=== PATIENT | male | born 2000 | race Caucasian/White ===

== ENCOUNTER 2024-01-26 12:53 | Emergency (ER) | payer OTHER, SELFPAY ==
[2024-01-26 13:15] VITALS: BP 150/97; PULSE 66; RESP 18; TEMP 36.1; O2SAT 100
--- NOTE | 2024-01-26 14:35 | ED.EXTPRO ---
HPI - Extremity Problem General Chief complaint: Extremity Problem,Nontraumatic Stated complaint: left knee pain Time Seen by Provider: 01/26/24 13:45 Source: patient Mode of arrival: ambulatory Limitations: no limitations History of Present Illness HPI Narrative: Patient is a 23-year-old male who presents the ED with report of left knee pain. Patient reports approx 1 week ago, he jumped down off a truck trailer and landed with his left knee bent. He states he felt a pop in his left knee. He has had pain in his left medial knee since then. Is able to ambulate, but has pain with this. Denies significant swelling. Has not tried anything for pain. Denies numbness. Denies any other injuries. Related Data Allergies Allergy/AdvReac Type Severity Reaction Status Date / Time No Known Allergies Allergy Unknown Verified 01/26/24 12:54 Review of Systems Review of Systems: CONSTITUTIONAL: Denies fever, chills, or sweats. MUSCULOSKELETAL: See HPI NEUROLOGIC: Denies headache, dizziness, numbness, or weakness. All systems reviewed & are unremarkable except as noted in HPI and below Exam Narrative: GENERAL: Well appearing, well-nourished, non-toxic, in no acute distress. HEAD: Normocephalic, atraumatic. RESPIRATORY: Airway patent, respirations nonlabored. CARDIOVASCULAR: Regular rate and rhythm MUSCULOSKELETAL: Moves all extremities. No gross deformities. No significant limited range of motion of left knee. TTP along medial joint space extending posteriorly. No palpable deformities. No significant swelling to anterior knee. No warmth or erythema. No lower extremity edema. No calf tenderness. Sensation intact. SKIN: Warm, dry, normal color. NEURO: A&O X3. Speech clear. Steady gait. PSYCHIATRIC: Appropriate mood and affect. Normal interaction. Course Vital Signs Vital signs: Vital Signs Temperature 97.0 F L 01/26/24 13:15 Pulse Rate 66 01/26/24 13:15 Respiratory Rate 18 01/26/24 13:15 Blood Pressure 150/97 H 01/26/24 13:15 Pulse Oximetry 100 01/26/24 13:15 Oxygen Delivery Room Air 01/26/24 13:15 Temperature 97.0 F L 01/26/24 13:15 Pulse Rate 66 01/26/24 13:15 Respiratory Rate 18 01/26/24 13:15 Blood Pressure 150/97 H 01/26/24 13:15 Pulse Oximetry 100 01/26/24 13:15 Oxygen Delivery Room Air 01/26/24 13:15 MDM - Extremity (Nontraumatic) MDM Narrative Medical decision making narrative: Patient?s injury is consistent with musculoskeletal etiology. No signs of neurologic or vascular compromise on physical examination. Compartments are soft without signs of compartment syndrome. XR w/o acute findings. No osseous abnormality or joint effusion noted. No other injuries. No evidence of DVT on exam. No evidence of septic joint. Discussed likelihood of ligamentous versus meniscal injury. Patient given Von wrap and crutches in the ED, advised to continue Tylenol, ibuprofen, rice treatment. Will refer to orthopedics for persistent pain. Discussed return precautions. Discharged in stable condition. Medical Records Attestation: I reviewed the patient's medical records. Imaging Data Attestation: I personally reviewed and interpreted this imaging study as follows: Radiologist's impression: ITS Impressions Knee X-Ray 01/26/24 14:10 Impression: Unremarkable left knee radiographs. Discharge Plan Discharge Clinical Impression: Internal derangement of left knee Patient Disposition: Home, Self-Care Condition: Stable Instructions: Antibiotic Form, Knee Sprain (ED) Additional Instructions: Take ibuprofen and Tylenol as needed for pain. Utilize VON bandage for compression/support. Recommend elevation of leg, ice as needed. Follow up with orthopedics if you continue to have pain over the next couple weeks. Return to the ED if you experience worsening or severe pain, recurrent injury, severe swelling, numbness, or any other symptoms of concern. Follow-
[2024-01-26] MEDS: IBUPROFEN 600 MG TABLET PO (14:46)
== END 2024-01-26 15:14 | disposition home or self-care (01) ==
LOC: ANHED 14:53
PROVIDERS: Emergency Provider Physician Assistant; PCP Pediatrics
DX: M23.92 Unspecified internal derangement of left knee (principal); S89.92XA Unspecified injury of left lower leg, initial encounter; X50.9XXA Other and unspecified overexertion or strenuous movements or postures, initial encounter
CPT/HCPCS: 73564; 99283; A9270

== ENCOUNTER 2024-11-30 15:18 | Emergency (ER) | payer OTHER, SELFPAY ==
--- NOTE | 2024-11-30 15:23 | ED.MALEGU ---
HPI - Male Genitourinary General Chief complaint: Urogenital-Male Stated complaint: STD check Time Seen by Provider: 11/30/24 15:28 Source: patient, RN notes reviewed and old records reviewed Mode of arrival: ambulatory Limitations: no limitations History of Present Illness HPI Narrative: 23-year-old male presents to the [facility] wanting to be checked for an STD. Patient concerned he had a possible exposure of chlamydia on 13 November. Patient denies any abdominal pain. No burning with urination. No penile discharge. No testicular pain or swelling. States that he just wants to be tested. Related Data Home Medications ?Medication ?Instructions ?Recorded ?Confirmed ?Last Taken ?Type No Home Medications 02/11/24 11/30/24 Unknown History Allergies Allergy/AdvReac Type Severity Reaction Status Date / Time No Known Allergies Allergy Unknown Verified 11/30/24 15:20 Review of Systems Review of Systems: All systems reviewed & are unremarkable except as noted in HPI and below Constitutional: Constitutional: Reports no additional constitutional complaints ENT: Reports system reviewed and no additional complaints, except as documented Cardiovascular: Cardiovascular: Reports no additional cardiovascular complaints, Denies chest pain and Denies dyspnea Respiratory: Respiratory: Reports no additional respiratory complaints, Denies chest congestion, Denies cough and Denies dyspnea Musculoskeletal: Musculoskeletal: Reports no additional musculoskeletal complaints Integumentary/Breasts: Skin/Breast: Reports system reviewed and no additional complaints, except as docu PMFSH Past Medical History Medical History No significant past medical history Surgical History Surgical History No significant past surgical history Family History Family History Grandparent Arthritis Mother Arthritis Social History Social History Smoking status: Unknown if ever smoked Alcohol intake: never Do You Feel Safe in your Home?: Yes Lack of Transportation: No Lack of Food: Sometimes True Current Housing: I Have Housing Concerned About Future Housing: No Difficulty Paying Gas/Electric Bills: No Difficulty Paying for Meds: No Currently Unemployed: No Education: High School Diploma/GED Difficulty w/ Childcare or Family Care: No Comments At the time of my signature, I reviewed and agree with the nursing past medical, surgical, social, and family history. There is no relevant family history pertinent to the patient complaint. Exam Const: General: cooperative, healthy appearing, comfortable, no acute distress, well developed, alert and well nourished Nutritional Appearance: well nourished Orientation/consciousness: patient oriented x3 Limitations: no limitations HENMT: Head: normal to inspection Eyes: General: appearance normal, both eyes and all related structures Alignment and Position: alignment normal Neck: Neck: normal visual inspection, full ROM, no lymphadenopathy and no meningeal signs Chest: Chest palpation & inspection: normal inspection of the chest Resp: Effort & Inspection: normal respiratory effort and able to speak in complete sentences Cardio: Rate: regular rate Skin: General skin exam: normal color and no rashes or lesions noted Neuro: General: patient oriented x3, gait normal, moves all extremities and no meningeal signs Cognition (Neuro): normal cognition Speech: normal speech Gait exam (Neuro): Normal gait present Extrem: General: normal to inspection, full ROM, capillary refill normal and normal gait Psych: Appearance: grossly normal and well kempt Mental Status: mental status grossly normal Speech and movement: Normal speech and movement present and Clear speech present Affect: normal affect Attitude: cooperative Course Course Level of Care: Express Care Visit Vital Signs Vital signs: Vital Signs Temperature 98.3 F 11/30/24 15:24 Pulse Rate 88 11/30/24 15:24 Respiratory Rate 16 11/30/24 15:24 Blood Pressure 153/84 H 11/30/24 15:24 Pulse Oximetry 98 11/30/24 15:24 Oxygen Delivery Room Air 11/30/24 15:24 Temperature 98.3 F 11/30/24 15:24 Pulse Rate 88 11/30/24 15:24 Respiratory Rate 16 11/30/24 15:24 Blood Pressure 153/84 H 11/30/24 15:24 Pulse Oximetry 98 11/30/24 15:24 Oxygen Delivery Room Air 11/30/24 15:24 Reviewed MDM - Male Genitourinary MDM Narrative Medical decision making narrative: Patient sitting comfortably in exam room. Nontoxic, vitals stable. Patient is in no acute distress. Patient presents requesting STI testing specifically chlamydia Patient reports possible exposure on 13 November, no signs or symptoms currently Will collect urine sent for testing. Patient will wait till test comes back Patient appropriate for outpatient treatment and follow-up STI clinic referral list given Discharge instructions reviewed with patient, as well as provided in writing per nursing staff. The instructions also include specific and strict return/GO TO THE ER as well as f/u information. All questions have been answered, and the patient deny any further questions with discharge and discharge plan. Some parts of this dictation were generated by voice recognition software and may contain typographical and/or grammatical inaccuracies. Differential Diagnosis Differential diagnosis: Likely other (STI) Critical Care Time Critical Care Time Critical Care Time: No Discharge Plan Discharge Clinical Impression: Concern about STI in male without diagnosis Patient Disposition: Home, Self-Care Condition: Stable Instructions: Antibiotic Form, Chlamydia (ED), Sexually Transmitted Diseases (ED), Safe Sex Practices (ED) Additional Instructions: You have been tested for chlamydia, gonorrhea and Trichomonas. They have been sent to the lab can take up to 72 hours to return. You will be notified with the results. If they are positive we will then call in a prescription. If anything is positive we do recommend a minimum of 2 weeks of no sexual activity Also if anything is positive we do recommend further evaluation and additional testing. Handout has been given to you on STI clinics in the area. Follow-up with primary care provider Patient Language: [place] Prescriptions: No Action No Home Medications Follow-up/Referrals: PHYSICIAN,POKER SUPERVISOR [Primary Care Provider] - Time of Disposition: 15:38
[2024-11-30 15:24] VITALS: BP 153/84; PULSE 88; RESP 16; TEMP 36.8; O2SAT 98
[2024-11-30 19:47] LABS: Trichomonas Vag PCR NOT DETECTED (NOT DETECTE)
[2024-11-30 20:10] LABS: Chlamydia trachomatis NOT DETECTED (NOT DETECTE); Neisseria gonorrhoeae PCR NOT DETECTED (NOT DETECTE)
== END 2024-11-30 15:40 | disposition home or self-care (01) ==
PROVIDERS: Emergency Provider Nurse Practitioner
DX: Z20.2 Contact with and (suspected) exposure to infections with a predominantly sexual mode of transmission (principal)
CPT/HCPCS: 87491; 87591; 87661; 99213; G0463